=== PATIENT | male | born 1965 | race Caucasian/White ===

== ENCOUNTER → 2020-06-05 08:27 | Outpatient (BNVA) | payer OTHER, SELFPAY | PROVIDERS: Family Provider Nurse Practitioner; PCP Nurse Practitioner; Visit Provider Urology | DX: Z12.5 Encounter for screening for malignant neoplasm of prostate (principal) | CPT/HCPCS: G0103 ==

== ENCOUNTER → 2021-03-20 09:55 | Outpatient (BNVA) | payer OTHER, SELFPAY | PROVIDERS: Family Provider Nurse Practitioner; PCP Nurse Practitioner; Visit Provider Nurse Practitioner | DX: E10.9 Type 1 diabetes mellitus without complications (principal); E03.9 Hypothyroidism, unspecified | CPT/HCPCS: 80053; 80061; 81000; 83036; 84443 ==

== ENCOUNTER → 2021-06-03 08:05 | Outpatient (BNVA) | payer OTHER, SELFPAY | PROVIDERS: Family Provider Nurse Practitioner; PCP Nurse Practitioner; Visit Provider Urology | DX: N52.9 Male erectile dysfunction, unspecified (principal); E10.9 Type 1 diabetes mellitus without complications; Z12.5 Encounter for screening for malignant neoplasm of prostate | CPT/HCPCS: G0103 ==

== ENCOUNTER → 2021-09-23 10:19 | Outpatient (BNVA) | payer OTHER, SELFPAY | PROVIDERS: Family Provider Nurse Practitioner; PCP Nurse Practitioner; Visit Provider Nurse Practitioner | DX: E10.9 Type 1 diabetes mellitus without complications (principal); I10 Essential (primary) hypertension; N52.9 Male erectile dysfunction, unspecified; E03.9 Hypothyroidism, unspecified; R74.8 Abnormal levels of other serum enzymes; Z11.59 Encounter for screening for other viral diseases | CPT/HCPCS: 80053; 80061; 82043; 83036; 84443; 86705; 86706; 86709; 86803; 87340 ==

== ENCOUNTER 2021-10-06 06:57 | Outpatient (CLI) | payer OTHER, SELFPAY ==
--- NOTE | 2021-10-06 07:15 | US_ITS ---
WS: [id number] ULTRASOUND ABDOMEN CLINICAL INFORMATION: R74.8 - Abnormal levels of other serum enzymes COMPARISON: None. FINDINGS: Liver Size: Normal. Craniocaudal length: 15.1 cm. Echogenicity: Echogenic portal triads. Hypoechoic parenchymal echotexture. Surface nodularity: None. Mass (size and location): None. Bile ducts Intrahepatic ducts: Normal. Common bile duct diameter: 0.3 cm. Gallbladder Normal. Gallstones: None. Gallbladder sludge: None. Gallbladder wall thickening: None. Pericholecystic fluid: None. Sonographic Agustin sign: Absent. Pancreas Normal as visualized. Right kidney: Normal. Hydronephrosis: None. Size: 13.4 cm x 7.7 cm x 5.0 cm Abdominal aorta and IVC Visualized portions are normal. Ascites: None. US/US liver [id number] IMPRESSION: Technically difficult examination due to bowel gas. 1. Hypoechoic liver echotexture with Echogenic portal triads can be seen with hepatitis.Correlation with liver function tests. Liver size within normal limit s. 2. Normal gallbladder. No cholelithiasis. 3. Normal common bile duct. 4. No hydronephrosis in RIGHT kidney. 5. No ascites.
== END 2021-10-06 06:58 | disposition home or self-care (01) ==
LOC: RAD 06:59
PROVIDERS: Family Provider Nurse Practitioner; PCP Nurse Practitioner; Visit Provider Nurse Practitioner
DX: R74.8 Abnormal levels of other serum enzymes (principal)
CPT/HCPCS: 76705

== ENCOUNTER 2022-04-18 08:27 | Emergency (ER) | payer BC, OTHER, SELFPAY ==
[2022-04-18 08:28] VITALS: BP 132/78; PULSE 77; RESP 20; TEMP 36.2; O2SAT 93; BMI 30.2
[2022-04-18 08:36] LABS: Glucose Point of Care 124 mg/dL (70-110)
[2022-04-18 08:55] LABS: Basophils # 0.1 10^3/uL (0.0-0.1); Basophils % 0.2 %; Eosinophils # 0.1 10^3/uL (0.0-0.8); Eosinophils % 0.3 %; Hematocrit 44.5 % (42.0-52.0); Hemoglobin 15.1 g/dL (11.7-16.6); Lymphocytes # 0.6 10^3/uL (0.8-4.8); Lymphocytes % 2.5 %; Mean Corpuscular HGB Conc 33.9 g/dL (30.0-36.0); Mean Corpuscular Hemoglobin 30.6 pg (28.0-34.0); Mean Corpuscular Volume 90.1 fl (80-94); Mean Platelet Volume 10.1 fL (7.4-10.4); Monocytes # 1.7 10^3/uL (0.2-0.9); Monocytes % 6.6 %; Neutrophils # 22.48 10^3/uL (1.8-7.7); Neutrophils % 89.8 %; Nucleated Red Blood Cells % 0 %; Platelet Count 335 10^3/cmm (130-400); Red Blood Count 4.94 10^6/uL (4.1-5.3); Red Cell Distribution Width 13.6 % (12.1-15.1); White Blood Count 25.1 10^3/uL (4.0-10.0)
[2022-04-18 09:13] VITALS: BP 132/78; PULSE 96; RESP 14; O2SAT 93
--- NOTE | 2022-04-18 09:19 | ED_ITS ---
HPI - General Adult General: Chief complaint: General Medical Stated complaint: HYPOGLYCEMIA Time Seen by Provider: 04/18/22 08:27 Source: patient Mode of arrival: EMS History of Present Illness: 56-year-old male history of type 1 diabetes presents emergency room with low blood sugar. His insulin pump had malfunctioned overnight and needle is not malpositioned we discovered his blood sugar got to 500 he repositioned reapplied the needle and gave the self boluses resulted in him becoming hypoglycemic he was poorly responsive his family called EMS and he was given glucose and his blood sugar rebounded on arrival here his blood sugar is 124 he can remember exactly what happened he has not recently been ill. He denies any fever sweats chills cough cold or flulike symptoms no dysuria urgency frequency or abdominal pain. Onset (ago): minute(s) Relieving factors: medication (Administration of glucose) Exacerbating factors: none Associated symptoms: Reports confusion and malaise; Deny chest pain, cough, diaphoresis, decreased appetite, dyspnea, fevers/chills, headache(s), nausea, rash, palpitations, seizures, short of breath, syncope, vomiting or weakness Treatments prior to arrival: other (Glucose) Review of Systems Const: Reports: malaise; Denies: fever(s), chills, fatigue or diaphoresis ENMT: Denies: throat pain, ear or mastoid pain, nasal discharge or nasal con gestion Card: Denies: chest pain, palpitations or syncope Resp: Denies: dyspnea GI: Denies: abdominal pain, nausea or vomiting : Denies: flank pain, difficulty urinating, dysuria, urinary frequency or urinary urgency Skin/Breast: Denies: rash Neuro: Reports: confusion; Denies: headache(s) PFSH ED PFSH: Medical History Diabetes mellitus type 1, controlled, insulin dependent Erectile dysfunction Family history of PTCA Hypothyroidism Surgical History History of back surgery History of circumcision Status post arthroscopic knee surgery Status post shoulder surgery Family History Father Lupus Heart disease Social History (Reviewed 04/18/22 @ 09:23 by TELMA Mendoza Smoking and tobacco status: never smoked Second hand smoke exposure: No Smoking risk assessment/counseling performed?: No Alcohol intake: current Alcohol intake frequency: holidays/special occasions only Desire information about alcohol rehabilitation?: No Counseling given: No Desire information about substance/drug rehabilitation?: No Counseling given: No Adopted: No Caregiver/support person: No Lives independently: Yes Household members: spouse Housing: House Marital status: Number of children: 2 service: No Current occupational status: employed Pets and animals: Yes History of recent travel: No Current gender identity: Male Physical Exam Const: GENERAL APPEARANCE: cooperative and comfortable ORIENTATION/CONSCIOUSNESS: Yes awake, Yes oriented to person, Yes oriented to place and Yes oriented to time HENMT: COMMON NORMALS: normocephalic, atraumatic and hearing grossly normal bilaterally HEAD & SCALP: normocephalic and atraumatic Resp: COMMON NORMALS: normal respiratory effort, No retractions, No use of accessory muscles and clear to auscultation bilaterally AUSCULTATION: clear to auscultation bilaterally Cardio: COMMON NORMALS: regular rate, regular rhythm and No murmurs present (Cardio) RATE: regular rate RHYTHM: regular rhythm GI: COMMON NORMALS: Soft to palpation and No hepatosplenomegaly present AUSCULTATION: Yes normoactive bowel sounds PALPATION: Yes Soft to palpation, No Tenderness to palpation present (GI), No Guarding due to palpation present (GI) and Yes No hepatosplenomegaly present Extremity: COMMON NORMALS: normal to inspection, capillary refill normal, no clubbing, cyanosis or edema, no calf tenderness and no pedal edema Neuro: SENSORIUM/ORIENTATION: Yes oriented to person, Yes oriented to place and Yes oriented to time Skin: COMMON NORMALS: no rashes or lesions noted GENERAL SKIN EXAM: no rashes or lesions noted Course Vital Signs: Vital signs: Vital Signs Temperature 97.1 F L 04/18/22 08:28 Pulse Rate 96 04/18/22 09:13 Respiratory Rate 14 04/18/22 09:13 Blood Pressure 132/78 04/18/22 09:13 Pulse Oximetry 93 04/18/22 09:13 Oxygen Delivery Me thod 04/18/22 09:13 MDM - General Adult Medical Decision Making Improved after fluids monitored patient was able to eat and drink without difficulty discharge home continue routine diabetic cares. Medical Records I reviewed the patient's medical records. Lab Data I reviewed the patient's lab results. 04/18/22 08:43 04/18/22 08:43 Laboratory Results WBC 25.1 10^3/uL (4.0-10.0) H 04/18/22 08:43 RBC 4.94 10^6/uL (4.1-5.3) 04/18/22 08:43 Hgb 15.1 g/dL (11.7-16.6) 04/18/22 08:43 Hct 44.5 % (42.0-52.0) 04/18/22 08:43 MCV 90.1 fl (80-94) 04/18/22 08:43 MCH 30.6 pg (28.0-34.0) 04/18/22 08:43 MCHC 33.9 g/dL (30.0-36.0) 04/18/22 08:43 RDW 13.6 % (12.1-15.1) 04/18/22 08:43 Plt Count 335 10^3/cmm (130-400) 04/18/22 08:43 MPV 10.1 fL (7.4-10.4) 04/18/22 08:43 Neut % (Auto) 89.8 % 04/18/22 08:43 Lymph % (Auto) 2.5 % 04/18/22 08:43 Fountain % (Auto) 6.6 % 04/18/22 08:43 Eos % (Auto) 0.3 % 04/18/22 08:43 Baso % (Auto) 0.2 % 04/18/22 08:43 Neut # (Auto) 22.48 10^3/uL (1.8-7.7) H 04/18/22 08:43 Lymph # (Auto) 0.6 10^3/uL (0.8-4.8) L 04/18/22 08:43 Fountain # (Auto) 1.7 10^3/uL (0.2-0.9) H 04/18/22 08:43 Eos # (Auto) 0.1 10^3/uL (0.0-0.8) 04/18/22 08:43 Baso # (Auto) 0.1 10^3/uL (0.0-0.1) 04/18/22 08:43 Nucleated RBC % (auto) 0 % 04/18/22 08:43 Nucleated RBCs # 0.0 /100WBC 04/18/22 08:43 Sodium 136 mmol/L (136-145) 04/18/22 08:43 Potassium 3.6 mmol/L (3.5-5.1) 04/18/22 08:43 Chloride 100 mmol/L (98-107) 04/18/22 08:43 Carbon Dioxide 27 mmol/L (22-29) 04/18/22 08:43 Anion Gap 12.6 (5-19) 04/18/22 08:43 BUN 26 mg/dL (6-20) H 04/18/22 08:43 Creatinine 0.8 mg/dL (0.7-1.2) 04/18/22 08:43 GFR Calculation 99.6 mL/min (90-130) 04/18/22 08:43 Glucose 140 mg/dL (65-115) H 04/18/22 08:43 POC Glucose 124 mg/dL (70-110) H 04/18/22 08:32 Calculated Osmolality 289 mOsm/kg (285-295) 04/18/22 08:43 Calcium 9.2 mg/dL (8.5-10.5) 04/18/22 08:43 Discharge Plan Discharge Patient Disposition: Home Clinical Impression: Hypoglycemia due to insulin Condition: Stable Prescriptions: No Action ascorbic acid (vitamin C) 1,000 mg tablet 1 gm PO DAILY ibuprofen 200 mg capsule 200 mg PO Q6H PRN insulin lispro [Humalog U-100 Insulin] 100 unit/mL solution See Rx Instructions SUBCUT DAILY Qty: 120 5RF Rx Instructions: 2.3 units per hour in continuous pump with 3-18 units at meal time SUBCUT daily; For insulin pump vardenafil 20 mg tablet 20 mg PO DAILY Qty: 90 1RF (DME) Accu-Chek Guide test strips Strip See Rx Instructions .Route Qty: 540 1RF Rx Instructions: 4-6 times day clarithromycin 500 mg tablet 500 mg PO BID 14 Days Qty: 28 2RF levothyroxine 100 mcg tablet 100 mcg PO DAILY Qty: 30 0RF olmesartan [Benicar] 20 mg tablet 20 mg PO DAILY Qty: 30 0RF Discharge Orders: Discharge ED (Routine); Ordered 04/18/22 Ordered By: Jairon Ireland Referrals: Gee Mei, [employer] [Primary Care Provider] - Discharge Diet: Usual diet Discharge Activity: Resume usual activity Patient Instructions: Opioid Safety, Pain Management Activity Restrictions/Additional Instructions: You were seen for hypoglycemia. Your blood sugars rebounded well. Resume your regular blood sugar maintenance. Coding Level of Care Code ED [place] for Chg Fwd Exam Detailed
[2022-04-18 09:25] LABS: Anion Gap 12.6 (5-19); Blood Urea Nitrogen 26 mg/dL (6-20); Calcium 9.2 mg/dL (8.5-10.5); Carbon Dioxide 27 mmol/L (22-29); Chloride 100 mmol/L (98-107); Glomerular Filtration Rate 99.6 mL/min (90-130); Glucose 140 mg/dL (65-115); Osmolality Calculated 289 mOsm/kg (285-295); Potassium 3.6 mmol/L (3.5-5.1); Sodium 136 mmol/L (136-145)
== END 2022-04-18 10:01 | disposition home or self-care (01) ==
PROVIDERS: Emergency Provider Family Medicine; PCP Nurse Practitioner
DX: E10.649 Type 1 diabetes mellitus with hypoglycemia without coma (principal); T38.3X5A Adverse effect of insulin and oral hypoglycemic [antidiabetic] drugs, initial encounter; Z79.4 Long term (current) use of insulin
CPT/HCPCS: 36416; 80048; 82962; 85025; 99283

== ENCOUNTER 2023-06-04 16:24 | Outpatient (CLI) | payer BC, SELFPAY ==
--- NOTE | 2023-06-04 16:35 | MR_ITS ---
WS: [id number] MRI RIGHT KNEE HISTORY: RIGHT KNEE EFFUSION COMPARISON: None available. Anterior cruciate ligament: Increased T2 signal throughout the ACL for mucoid degeneration. The fiber s are intact. Posterior cruciate ligament: Intact. Medial collateral ligament: MCL is displaced to the joint line by osteophyte and extruded meniscus. T here is increased T2 signal and fluid adjacent to and within the MCL. No full-thickness tear is ident ified but there is a mild sprain. Posterior lateral corner structures: Small amount of increased fluid in the soft tissues. There is a tiny amount of increased fluid within the posterior lateral corner structures consistent with a mild sprain. No full-thickness tear. Medial menisci: Blunting and abnormal signal involving the free edge. Increased T2 signal consistent with tears involving the free edge in the central portion of the meniscus greatest toward the menisca l root. Partially extruded anterior horn. Lateral meniscus: Intermediate increased signal in the anterior horn. Probably mucoid degeneration. S mall amount of increased fluid in the posterior inferior meniscal popliteal fascicle. This is probabl y a small meniscal cyst. Extensor mechanism: Distal quadriceps tendon and patellar tendons are intact. Fluid and soft tissue: Moderate suprapatellar joint effusion. No Levy's cyst. Osseous and articular structures: Patellofemoral compartment: Moderate surface fraying of the cartilage greatest toward the lateral fac et and patellar apex. No marrow edema. Medial compartment: Moderate narrowing the medial compartment with significant fraying and thinning a nd loss of cartilage involving the weightbearing surface of the femoral condyle and tibial plateau. T here is also a small amount of marrow edema in the tibial plateau and femoral condyle. Edema extends to the base of the tibial spines. Lateral compartment: Mild narrowing the lateral compartment with thinning and fissuring of the cartil age. Small osteochondral lesion along the weightbearing surface tibial plateau. IMPRESSION: 1. Mild sprain of the MCL with displacement from the joint line by osteophyte and meniscus. 2. Complex tear posterior horn medial meniscus involving the central meniscus toward the free edge. Anterior horn is extruded from the joint line. 3. Increased fluid along the posterior inferior meniscal popliteal fascicle. This may be related to a tear within the meniscus resulting in a meniscal cyst. 4. Moderate suprapatellar joint effusion. 5. Moderate osteoarthritic changes medial compartment with joint space narrowing, loss of cartilage and marrow edema. 6. Mild narrowing of the lateral compartment and osteoarthritis with thinning and fissuring of the c artilage. Small osteochondral lesion weightbearing surface tibial plateau. 7. Moderate patellar chondromalacia.
== END 2023-06-04 16:25 | disposition home or self-care (01) ==
LOC: RAD 16:24
PROVIDERS: PCP Nurse Practitioner; Visit Provider Emergency Medicine
DX: S83.411A Sprain of medial collateral ligament of right knee, initial encounter (principal); M25.761 Osteophyte, right knee; M17.11 Unilateral primary osteoarthritis, right knee; X58.XXXA Exposure to other specified factors, initial encounter; M25.861 Other specified joint disorders, right knee; M22.41 Chondromalacia patellae, right knee; S83.241A Other tear of medial meniscus, current injury, right knee, initial encounter
CPT/HCPCS: 73721